=== PATIENT | male | born 1975 | race Caucasian/White ===

== ENCOUNTER 2020-06-27 04:14 | Outpatient (CLI) | payer BC, SELFPAY ==
[2020-06-27 19:32] LABS: SARS-CoV-2 RNA PCR Negative
== END 2020-06-27 04:15 | disposition home or self-care (01) ==
PROVIDERS: PCP Family Medicine; Visit Provider Internal Medicine Critical Care Medicine
DX: R68.89 Other general symptoms and signs (principal); Z20.822 Contact with and (suspected) exposure to COVID-19
CPT/HCPCS: C9803; U0003

== ENCOUNTER 2020-06-30 09:31 | Outpatient (CLI) | payer BC, SELFPAY ==
--- NOTE | 2020-07-03 10:59 | WPDSLEEPSTUD ---
Sleep Study Date of Study: 06/30/20 Ordering Provider: Smooth Bravo MD Interpreting Physician: Daija Brody MD Sleep Study Type: CPAP Titration Height: 1.75 m Weight: 78.018 kg Body Mass Index: 25.4 Neck Circumference: 38.61 cm New [place]: 9 Reason for Sleep Study history of BERNARD since 2004, recently lost his CPAP on a trip, needed to have re-titration to obtain a new device Sleep History Benedicto Van is a 45 year-old man who was initially diagnosed with obstructive sleep apnea syndrome on April 15, 2005 with a nocturnal polysomnogram with an AHI of 5.1 with heavy snoring and mild oxygen desaturation. He returned to the sleep Lab on 08/11/2005 and was titrated to CPAP 12 cm of water pressure. His body mass index of the time was 26.6. He recently lost his CPAP while travelling, and is here for a titration in order to have a new prescription for a CPAP device. The patient has been without CPAP for about a month. He wakes up 3 or 4 times a night now that he is no longer using CPAP. He has excessive daytime sleepiness and fatigue without using CPAP. Normally he sleeps 7 hours a night when he uses CPAP. He does not have snoring while uses it and he does not get gasp for breath while using it. He does not require naps on while he is using CPAP. He is currently waking himself up with his snoring. He goes to bed between 11 and 12 midnight, wakes at 7 in the morning. Now is having daytime fatigue but usually feels rested with CPAP. He does not have morning headaches however he has had increasingly frequent headaches after falling and striking his head. He does not fall asleep inappropriately during the day. He does have drowsiness while driving since he has been off his CPAP. He does not have difficulty concentrating during the daytime. There is no family history of obstructive sleep apnea. [facility] Past Medical History Medical History (Updated 07/03/20 @ 11:26 by Daija Brody MD) BMI 25.0-25.9,adult Diverticulosis Gastroesophageal reflux disease Hypertension Hypertriglyceridemia Obstructive sleep apnea 2004; CPAP 12 cm in 2005 Prediabetes Family History Family History (Updated 06/02/20 @ 10:42 by Shantal Coronado [facility]) Father Hypertension Family history of coronary artery disease COPD (chronic obstructive pulmonary disease) Mother No problems noted. Sibling No problems noted. 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 Medications Home Medications Medication Instructions Recorded Confirmed Type benazepril 20 1 tablet PO DAILY #30 tablet 04/27/20 06/02/20 Rx mg-hydrochlorothiazide 12.5 mg tablet metoprolol tartrate 100 mg tablet 100 mg PO Q12H #60 tablet 04/27/20 06/02/20 Rx Sleep Procedure This test was performed using the S[employer]eso multiple channel system including EOG, EEG, submental EMG, EKG, nasal and oral airflow using thermistors and nasal pressure sensors, chest and abdominal belts for body position data, and pulse oximetry. Video monitoring was also performed. The study was scored using [facility] guidelines. The patient was started on CPAP at 7 cm using a medium Wisp nasal mask, then switched to a Mirage nasal mask. CPAP was increased from 7 cm to 10 cm as he could not breathe easily at the lower setting. he had a difficult time initially falling asleep but afterwards was able to tolerate the titration well. Sleep Architecture The recording time was 448.8 minutes. The sleep time was 377.5 minutes. Sleep efficiency is 84.1%. Sleep latency was prolonged at 45.4 minutes. REM latency was short at 70.5 minutes. He had 19 awakenings and spent 6.4% of the study awake after sleep onset, 25.9 minutes. Sleep pricila
[2020-07-03 11:04] VITALS: BMI 25.4
== END 2020-06-30 09:32 | disposition home or self-care (01) ==
LOC: ANHCSM 09:33
PROVIDERS: PCP Family Medicine; Visit Provider Family Medicine
DX: G47.33 Obstructive sleep apnea (adult) (pediatric) (principal)
CPT/HCPCS: 95811

== ENCOUNTER 2024-07-05 00:27 | Day surgery (SDC) | payer OTHER, SELFPAY ==
[2024-06-25 10:29] VITALS: BMI 23.6
[2024-07-05 08:14] VITALS: BP 123/89; PULSE 72; RESP 18; TEMP 36.2; O2SAT 97; BMI 22.8
[2024-07-05] MEDS: LACTATED RINGERS 1,000 ML 150 ML IV CONT (08:21)
--- NOTE | 2024-07-05 08:35 | P.PNAN_ITS ---
Anes - Initial Pre Proc Eval Procedure: Operation Date: 07/05/24 09:30 Proposed Procedures p Screening Colonoscopy - Curt Foss MD Date/Time: 07/05/24 08:35 Surgeon: Curt Foss MD Pre Op Diagnosis: screening malignant neoplasm colon Patient Data Age: 49 Gender: M Height: 1.75 m Weight: 70 kg Last Vital Signs Temp 36.2 C L 07/05/24 08:14 Pulse 72 07/05/24 08:14 Resp 18 07/05/24 08:14 BP 123/89 07/05/24 08:14 Pulse Ox 97 07/05/24 08:14 O2 Del Method Room Air 07/05/24 08:14 Allergies Allergy/AdvReac Type Severity Reaction Status Date / Time No Known Allergies Allergy Unknown Verified 07/05/24 08:12 Home Medications ?Medication ?Instructions ?Recorded ?Confirmed ?Type benazepril 20 See Rx Instructions .Route 03/11/24 07/05/24 Rx mg-hydrochlorothiazide 12.5 mg .COMPLEX #90 tabs tablet metoprolol tartrate 100 mg tablet 100 mg PO Q12H #180 tabs 03/11/24 07/05/24 Rx Patient hx anesthesia problems: none Family hx anesthesia problems: none Results Review: All pre-operative results and documents have been reviewed as part of the pre- operative evaluation. [facility] Past Medical History Medical History BMI 23.0-23.9, adult Obstructive sleep apnea 2004; CPAP 12 cm in 2005 BMI 25.0-25.9,adult Hypertriglyceridemia Prediabetes Hypertension Gastroesophageal reflux disease Diverticulosis Family History Family History Father Hypertension Family history of coronary artery disease COPD (chronic obstructive pulmonary disease) Mother No problems noted. Sibling No problems noted. 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 Gender identity (if verbalized by the patient): Male Spiritual care concerns: No Anes - Eval Final PreProcedure Day of Procedure 07/05/24 08:35 Patient weight: normal Heart: regular rate and rhythm Lungs: clear to auscultation Airway: Mallampati scale class II Neurological: alert and oriented Last oral intake: >/= 8 hours ASA classification: III Emergent: no Anesthetic plan: proceed Anesthesia type and monitoring: general GIVS and standard monitoring Results Review: All pre-operative results and documents have been reviewed as part of the pre- operative evaluation. Informed Consent: The patient's anesthetic plan and its attendant risks and benefits were discussed with the patient/family/POA. Questions were solicited and answers provided to the satisfaction of the patient/family/POA.
--- NOTE | 2024-07-05 08:36 | PM.HPGS ---
History of Present Illness History of Present Illness Consent: Risks, benefits, and alternatives have been discussed and questions answered. Patient agrees to proceed with procedure. Chief complaint: screening malignant neoplasm colon Narrative: Benedicto Van is a 49 year old male here for screening colonoscopy, had one about 20 years ago because hemorrhoids Review of Systems Review of Systems: All systems reviewed & are unremarkable except as noted in HPI and below PMFSH Past Medical History Medical History BMI 23.0-23.9, adult Obstructive sleep apnea 2004; CPAP 12 cm in 2005 BMI 25.0-25.9,adult Hypertriglyceridemia Prediabetes Hypertension Gastroesophageal reflux disease Diverticulosis Family History Family History Father Hypertension Family history of coronary artery disease COPD (chronic obstructive pulmonary disease) Mother No problems noted. Sibling No problems noted. 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 Gender identity (if verbalized by the patient): Male Spiritual care concerns: No Meds Home Medications and Allergies Home Medications ?Medication ?Instructions ?Recorded ?Confirmed ?Type benazepril 20 See Rx Instructions .Route 03/11/24 07/05/24 Rx mg-hydrochlorothiazide 12.5 mg .COMPLEX #90 tabs tablet metoprolol tartrate 100 mg tablet 100 mg PO Q12H #180 tabs 03/11/24 07/05/24 Rx Allergies Allergy/AdvReac Type Severity Reaction Status Date / Time No Known Allergies Allergy Unknown Verified 07/05/24 08:12 Vital Signs Vital Signs - 24 hr 07/05/24 08:14 Temperature 97.1 F L Pulse Rate 72 Respiratory Rate 18 Blood Pressure 123/89 Pulse Oximetry 97 Oxygen Delivery Room Air Exam Const: General: comfortable and no acute distress HENMT: Face/Nose/Sinus: Normal nares present Eyes: General: appearance normal, both eyes and all related structures Neck: Neck: no JVD Resp: Auscultation: clear to auscultation bilaterally Cardio: Rate: regular rate Rhythm: regular rhythm GI: Inspection: non-distended GI Palp: Yes Soft to palpation Skin: General skin exam: normal color Neuro: General: gait normal Speech: normal speech Extrem: General: normal to inspection Psych: Mental Status: mental status grossly normal Assessment and Plan Assessment and plan (1) Screening for malignant neoplasm of colon: Code(s): Z12.11 - Encounter for screening for malignant neoplasm of colon Status: Acute Assessment and Plan: colonoscopy
[2024-07-05 08:53] VITALS: BP 95/59; PULSE 68; RESP 23; O2SAT 97
[2024-07-05 09:03] VITALS: BP 90/55; PULSE 62; RESP 18; O2SAT 97
[2024-07-05 09:13] VITALS: BP 102/62; PULSE 60; RESP 17; O2SAT 97
--- OUTSIDE RECORDS SUMMARY | 2024-07-11 04:52 | XMS_ITS | Clinical Summary ---
Author Organization [facility] Address [address] [place] [address]. 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 Name Role Phone Smooth Bravo MD Primary Care Provider [phone] Allergies No known active allergies Medications No known medications Social History Tobacco Use Types Packs/Day Years Used Date Smoking Tobacco: Every Day Electronic Cigarettes Smokeless Tobacco: Never Alcohol Use Standard Drinks/Week Comments Yes 0 (1 standard drink = 0.6 oz pur e alcohol) occasionally Sex and Gender Information Value Date Recorded Sex Assigned at Not on file Legal Sex Male 7:58 PM CDT Gender Identity Not on file Sexual Orientation Not on file Last Filed Vital Signs Vital Sign Reading Time Taken Comments Blood Pressure 157/99 04/19/2020 4:27 PM NEUROLOGY SPECIALIST Pulse 69 04/19/2020 4:27 PM NEUROLOGY SPECIALIST Temperature 36.7 ??C (98.1 ??F) 04/19/2020 4:27 PM CS T Respiratory Rate 18 04/19/2020 4:27 PM NEUROLOGY SPECIALIST Oxygen Saturation 96% 04/19/2020 4:27 PM NEUROLOGY SPECIALIST Inhaled Oxygen Concentration - - Weight 74.8 kg (165 lb) 04/19/2020 4:27 PM NEUROLOGY SPECIALIST Height 175.3 cm (5' 9 ) 04/19/2020 4:27 PM NEUROLOGY SPECIALIST Body Mass Index 24.37 04/19/2020 4:27 PM NEUROLOGY SPECIALIST Plan of Treatment Health Maintenance Due Date Last Done Comments Colorectal Cancer Screening Colonoscopy (10 Years) 1973 Annual Physical 02/24/1976 Pneumococcal Vaccine: Pediat rics (0 to 5 Years) and At-Risk Patients (6 to 64 Years) (1 of 2 - PCV) 1979 Hepatitis C 1991 DTaP, Tdap and Td Vaccines ( 1 - Tdap) 02/24/1992 Hepatitis B Vaccines (1 of 3 - 19+ 3-dose series) 02/24/1992 Zoster Vaccines (1 of 2) 2023 COVID-19 Vaccine (1 - 2023-2 5 season) 2024 Influenza Adult (#1) 2024 Meningococcal Vaccine Aged Out No danita brigitte eligible based on patient's age to complete this topic RSV Immunizations Under 20 Months Aged Out No longer eligible based on patient's age to complete this topic [place] [address] [address] Care Teams 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
== END 2024-07-05 09:29 | disposition home or self-care (01) ==
PROVIDERS: PCP Family Medicine; Referring Provider Nurse Practitioner Family; Visit Provider Internal Medicine Gastroenterology
PROC: 0DJD8ZZ Inspection of Lower Intestinal Tract, Via Natural or Artificial Opening Endoscopic (ICD-10-PCS; CPT 45378; principal; 2024-07-05 09:30)
DX: Z12.11 Encounter for screening for malignant neoplasm of colon (principal); K64.8 Other hemorrhoids; K57.30 Diverticulosis of large intestine without perforation or abscess without bleeding; I10 Essential (primary) hypertension; K21.9 Gastro-esophageal reflux disease without esophagitis; R73.03 Prediabetes; E78.1 Pure hyperglyceridemia; G47.33 Obstructive sleep apnea (adult) (pediatric); F17.290 Nicotine dependence, other tobacco product, uncomplicated; F12.90 Cannabis use, unspecified, uncomplicated; Z99.89 Dependence on other enabling machines and devices; Z87.19 Personal history of other diseases of the digestive system; Z80.0 Family history of malignant neoplasm of digestive organs; Z82.49 Family history of ischemic heart disease and other diseases of the circulatory system
CPT/HCPCS: 45378; J2704; J7120